=== PATIENT | female | born 1970 | race Caucasian/White ===

== ENCOUNTER 2021-07-27 04:29 | Inpatient (IN) ==
[2021-07-27] MEDS ORDERED: methylPREDNISolone 125 MG/2 ML VIAL IVP ONE (04:40)
[2021-07-27] MEDS ORDERED: Ipratropium/Albuterol Neb 3 ML IH ONE (04:40)
[2021-07-27 05:18] LABS: Basophils # 0.1 K/mcL (0.0-0.2); Basophils % 0.2 %; Eosinophils # 0.1 K/mcL (0.0-0.6); Eosinophils % 0.6 %; Hematocrit 32.4 % (35.3-44.9); Hemoglobin 10.3 g/dL (11.5-15.4); Immature Granulocytes % 0.3 % (0-4); Lymphocytes # 1.6 K/mcL (0.6-4.6); Lymphocytes % 8.1 %; Mean Corpuscular HGB Conc 31.8 g/dL (31.6-35.5); Mean Corpuscular Hemoglobin 27.9 pg (28.0-33.3); Mean Corpuscular Volume 87.8 fL (83.0-100.0); Mean Platelet Volume 11.3 fL (9.4-12.4); Monocytes # 0.7 K/mcL (0.0-1.3); Monocytes % 3.2 %; Neutrophils # 17.8 K/mcL (1.6-8.9); Platelet Count 356 K/mcL (140-400); Red Blood Count 3.69 M/mcL (3.82-4.97); Red Cell Distribution Width 14.4 % (11.5-14.5); Segmented Neutrophils % 87.6 %; White Blood Count 20.4 K/mcL (4.3-11.1)
[2021-07-27] MEDS ORDERED: Isovue-370 500 ML BOTTLE IVP ONE (05:34)
[2021-07-27 05:35] LABS: BUN/Creatinine Ratio 14 (6-26); Blood Urea Nitrogen 10 mg/dL (6-20); Calcium 8.4 mg/dL (8.6-10.3); Carbon Dioxide 25 mEq/L (23-29); Chloride 105 mEq/L (98-107); Glucose 144 mg/dL (70-105); Osmolality,Calculated 294 (280-300); Potassium 2.8 mEq/L (3.5-5.1); Sodium 141 mEq/L (136-145); Troponin I 0.03 ng/mL (< 0.04); eGFR For African Americans > 60 (> 60); eGFR For Non-African Americans > 60 (> 60)
[2021-07-27] MEDS ORDERED: Piperacillin/Tazobactam 3.375 GM in 0.9 % Sodium Chloride Mini Bag 100 ML IVPB ONE (05:35)
[2021-07-27] MEDS ORDERED: Vancomycin 1,500 MG/265 ML IV.SOLN IVPB ONE (05:35)
[2021-07-27] MEDS ORDERED: Azithromycin 500 MG in 0.9 % Sodium Chloride 250 ML IVPB ONE (05:36)
[2021-07-27 06:56] LABS: Adenovirus Not Detected (Not Detect); Coronavirus 229E Not Detected (Not Detect); Coronavirus HKU1 Not Detected (Not Detect); Coronavirus NL63 Not Detected (Not Detect); Coronavirus OC43 Not Detected (Not Detect); Human Metapneumovirus Not Detected (Not Detect); Human Rhinovirus/Enterovirus Not Detected (Not Detect); Influenza A Subtype 2009 H1 Not Detected (Not Detect); Influenza B Not Detected (Not Detect); Parainfluenza Virus 1 Not Detected (Not Detect); Parainfluenza Virus 2 Not Detected (Not Detect); Parainfluenza Virus 3 Not Detected (Not Detect); Parainfluenza Virus 4 Not Detected (Not Detect); SARS-CoV-2 Not Detected (Not Detect)
[2021-07-27 06:57] LABS: Bordetella Pertussis Not Detected (Not Detect); Chlamydophila pneumoniae Not Detected (Not Detect); Mycoplasma pneumoniae Not Detected (Not Detect); Respiratory Syncytial Virus Not Detected (Not Detect)
[2021-07-27 07:05] LABS: VBG HCO3 22 mEq/L (21-27); VBG PCO2 28 mmHg (41-51); VBG PH 7.49 pH Units (7.32-7.42); VBG PO2 36 mmHg (25-50)
[2021-07-27] MEDS ORDERED: Naloxone 0.4 MG/ML INJ IVP PRN (07:13)
[2021-07-27] MEDS ORDERED: Furosemide 20 MG/2 ML VIAL IVP ONE (08:29)
[2021-07-27] MEDS ORDERED: cefTRIAXone 1,000 MG in 0.9 % Sodium Chloride 10 ML IVP SCH (09:00)
[2021-07-27] MEDS ORDERED: *HR* Heparin 5,000 UNIT/ML VIAL IVP PRN ×2 (10:50)
[2021-07-27] MEDS ORDERED: *HR* Heparin 5,000 UNIT/ML VIAL IVP ONE (10:50)
[2021-07-27 11:50] LABS: INR 1.3; Prothrombin Time 14.1 Seconds (9.4-12.1)
[2021-07-27 11:53] LABS: Heparin anti-factor XA UFH < 0.04 IU/mL (0.30-0.70)
[2021-07-27] MEDS ORDERED: Perflutren Lipid Microsphere 1.3 ML in 0.9 % Sodium Chloride 8.7 ML IVP PRN (13:30)
[2021-07-27] MEDS: Heparin 25,000UNIT/250ML 1/2NS 25,000 UNIT/250 ML IV.SOLN IVC SCH ×2 (13:32→19:38)
[2021-07-27] MEDS: Aspirin Enteric Coated 81 MG Tablet PO SCH (14:22)
[2021-07-27] MEDS: Metoprolol XL (24 HR) Succ 25 MG TAB.ER.24H PO SCH (14:22)
[2021-07-27] MEDS: *HR* Ticagrelor 90 MG TABLET PO SCH ×2 (14:22→20:43)
[2021-07-27] MEDS: Piperacillin/Tazobactam 3.375 GM in 0.9 % Sodium Chloride Mini Bag 100 ML IVPB SCH (19:39)
[2021-07-27] MEDS: FLUoxetine 20 MG CAPSULE PO SCH (20:34)
[2021-07-27] MEDS: Vancomycin 1,250 MG/262.5 ML IV.SOLN IVPB SCH (20:43)
[2021-07-27] MEDS: Nicotine 21 MG PATCH.TD24 TD SCH (21:33)
[2021-07-28] MEDS: Piperacillin/Tazobactam 3.375 GM in 0.9 % Sodium Chloride Mini Bag 100 ML IVPB SCH ×4 (01:11→21:22)
[2021-07-28 01:14] LABS: Basophils % 0.1 %; Immature Granulocytes % 0.5 % (0-4); Monocytes % 3.2 %
[2021-07-28 01:15] LABS: Hematocrit 29.3 % (35.3-44.9); Hemoglobin 9.7 g/dL (11.5-15.4); Lymphocytes % 6.2 %; Mean Corpuscular HGB Conc 33.1 g/dL (31.6-35.5); Mean Corpuscular Hemoglobin 28.4 pg (28.0-33.3); Mean Corpuscular Volume 85.7 fL (83.0-100.0); Platelet Count 337 K/mcL (140-400); Red Blood Count 3.42 M/mcL (3.82-4.97); Red Cell Distribution Width 14.3 % (11.5-14.5); White Blood Count 26.5 K/mcL (4.3-11.1)
[2021-07-28 01:17] LABS: Lymphocytes # 1.6 K/mcL (0.6-4.6); Monocytes # 0.9 K/mcL (0.0-1.3); Neutrophils # 23.9 K/mcL (1.6-8.9)
[2021-07-28 01:33] LABS: BUN/Creatinine Ratio 21 (6-26); Blood Urea Nitrogen 11 mg/dL (6-20); Calcium 8.2 mg/dL (8.6-10.3); Carbon Dioxide 23 mEq/L (23-29); Chloride 104 mEq/L (98-107); Glucose 130 mg/dL (70-105); Osmolality,Calculated 289 (280-300); Potassium 3.1 mEq/L (3.5-5.1); Sodium 139 mEq/L (136-145); eGFR For African Americans > 60 (> 60); eGFR For Non-African Americans > 60 (> 60)
[2021-07-28] MEDS ORDERED: *HR* Enoxaparin 40 MG/0.4 ML SYRINGE SQ SCH (06:00)
[2021-07-28] MEDS: FLUoxetine 20 MG CAPSULE PO SCH (07:58)
[2021-07-28] MEDS: *HR* Ticagrelor 90 MG TABLET PO SCH ×2 (07:58→21:22)
[2021-07-28] MEDS: Nicotine 21 MG PATCH.TD24 TD SCH (07:58)
[2021-07-28] MEDS: Aspirin Enteric Coated 81 MG Tablet PO SCH (07:58)
[2021-07-28] MEDS: Vancomycin 1,250 MG/262.5 ML IV.SOLN IVPB SCH (07:58)
[2021-07-28] MEDS: Metoprolol XL (24 HR) Succ 25 MG TAB.ER.24H PO SCH (07:58)
[2021-07-28 08:41] LABS: Magnesium 1.1 mg/dL (1.6-2.6)
[2021-07-28] MEDS ORDERED: Azithromycin 500 MG in 0.9 % Sodium Chloride 250 ML IVPB SCH (09:00)
[2021-07-28] MEDS ORDERED: predniSONE 20 MG TABLET PO SCH (09:00)
[2021-07-28] MEDS ORDERED: Potassium Chloride Elixir 20 MEQ/15 ML UDC PO ONE (09:11)
[2021-07-28] MEDS ORDERED: Magnesium Oxide 400 MG TABLET PO SCH (09:15)
[2021-07-28] MEDS: Ipratropium/Albuterol Neb 3 ML IH SCH ×5 (10:38→23:18)
[2021-07-28] MEDS: Acetaminophen 325 MG TABLET PO PRN (14:25)
[2021-07-28] MEDS: MethylPREDNISolone 40 MG/ML VIAL IVP SCH (17:52)
[2021-07-28] MEDS: Vancomycin 1,750 MG/517.5 ML IV.SOLN IVPB SCH (19:41)
[2021-07-29] MEDS: Ipratropium/Albuterol Neb 3 ML IH SCH ×6 (03:23→23:43)
[2021-07-29] MEDS: hydrOXYzine pamoate 25 MG CAPSULE PO PRN (04:23)
[2021-07-29 04:33] LABS: Basophils % 0.1 %; Hemoglobin 9.6 g/dL (11.5-15.4); Mean Platelet Volume 12.1 fL (9.4-12.4); Monocytes % 2.3 %; Red Cell Distribution Width 14.6 % (11.5-14.5)
[2021-07-29 04:34] LABS: Hematocrit 30.4 % (35.3-44.9); Immature Granulocytes % 0.9 % (0-4); Lymphocytes % 3.3 %; Mean Corpuscular HGB Conc 31.6 g/dL (31.6-35.5); Mean Corpuscular Hemoglobin 27.7 pg (28.0-33.3); Mean Corpuscular Volume 87.9 fL (83.0-100.0); Monocytes # 0.7 K/mcL (0.0-1.3); Neutrophils # 29.5 K/mcL (1.6-8.9); Platelet Count 332 K/mcL (140-400); Red Blood Count 3.46 M/mcL (3.82-4.97); Segmented Neutrophils % 93.4 %
[2021-07-29 04:46] LABS: White Blood Count 31.6 K/mcL (4.3-11.1)
[2021-07-29 04:51] LABS: BUN/Creatinine Ratio 22 (6-26); Blood Urea Nitrogen 12 mg/dL (6-20); Calcium 8.6 mg/dL (8.6-10.3); Carbon Dioxide 21 mEq/L (23-29); Chloride 103 mEq/L (98-107); Glucose 149 mg/dL (70-105); Osmolality,Calculated 285 (280-300); Phosphorous 2.9 mg/dL (2.7-4.5); Potassium 3.7 mEq/L (3.5-5.1); Sodium 136 mEq/L (136-145); eGFR For African Americans > 60 (> 60); eGFR For Non-African Americans > 60 (> 60)
[2021-07-29 05:13] LABS: Platelet Estimate Normal (Normal)
[2021-07-29] MEDS: MethylPREDNISolone 40 MG/ML VIAL IVP SCH ×2 (07:03→17:52)
[2021-07-29] MEDS: Piperacillin/Tazobactam 3.375 GM in 0.9 % Sodium Chloride Mini Bag 100 ML IVPB SCH ×3 (07:04→22:16)
[2021-07-29] MEDS ORDERED: Furosemide 20 MG/2 ML VIAL IVP STA (08:53)
[2021-07-29] MEDS: Vancomycin 1,750 MG/517.5 ML IV.SOLN IVPB SCH ×2 (09:16→18:47)
[2021-07-29] MEDS: Aspirin Enteric Coated 81 MG Tablet PO SCH (09:17)
[2021-07-29] MEDS: Nicotine 21 MG PATCH.TD24 TD SCH (09:17)
[2021-07-29] MEDS: Metoprolol XL (24 HR) Succ 25 MG TAB.ER.24H PO SCH (09:17)
[2021-07-29] MEDS: FLUoxetine 20 MG CAPSULE PO SCH (09:35)
[2021-07-29] MEDS: *HR* Ticagrelor 90 MG TABLET PO SCH ×2 (09:35→20:03)
[2021-07-29] MEDS: Heparin 25,000UNIT/250ML 1/2NS 25,000 UNIT/250 ML IV.SOLN IVC SCH (11:00)
[2021-07-29 11:36] LABS: ABG Base Excess 0 mEq/L (-2 to 3); ABG HCO3 22 mEq/L (21-27); ABG Oxygen Saturation 99 % (95-98); ABG PCO2 30 mmHg (35-45); ABG PH 7.49 pH Units (7.32-7.45); ABG PO2 114 mmHg (85-104); ABG TCO2 23 mEq/L (20-26)
[2021-07-29] MEDS ORDERED: Ipratropium/Albuterol Neb 3 ML IH PRN (16:13)
[2021-07-29] MEDS: Acetaminophen 325 MG TABLET PO PRN (20:02)
[2021-07-30 00:48] LABS: Basophils % 0.1 %; Hemoglobin 8.6 g/dL (11.5-15.4); Monocytes % 2.5 %; Red Cell Distribution Width 14.5 % (11.5-14.5)
[2021-07-30 00:49] LABS: Hematocrit 26.6 % (35.3-44.9); Immature Granulocytes % 0.6 % (0-4); Lymphocytes # 0.7 K/mcL (0.6-4.6); Lymphocytes % 2.4 %; Mean Corpuscular HGB Conc 32.3 g/dL (31.6-35.5); Mean Corpuscular Hemoglobin 27.9 pg (28.0-33.3); Mean Corpuscular Volume 86.4 fL (83.0-100.0); Monocytes # 0.7 K/mcL (0.0-1.3); Neutrophils # 27.9 K/mcL (1.6-8.9); Platelet Count 324 K/mcL (140-400); Red Blood Count 3.08 M/mcL (3.82-4.97); Segmented Neutrophils % 94.4 %; White Blood Count 29.6 K/mcL (4.3-11.1)
[2021-07-30 01:07] LABS: Alanine Aminotransferase 11 Units/L (7-52); Albumin 3.1 g/dL (3.5-5.7); Albumin/Globulin Ratio 0.8 (1.1-2.2); Alkaline Phosphatase 92 Units/L (34-104); Aspartate Amino Transferase 28 Units/L (13-39); BUN/Creatinine Ratio 21 (6-26); Bilirubin,Total 0.5 mg/dL (0.3-1.0); Blood Urea Nitrogen 15 mg/dL (6-20); Calcium 8.8 mg/dL (8.6-10.3); Carbon Dioxide 23 mEq/L (23-29); Chloride 105 mEq/L (98-107); Globulin 3.9 g/dL (2.4-3.5); Glucose 149 mg/dL (70-105); Osmolality,Calculated 288 (280-300); Potassium 3.4 mEq/L (3.5-5.1); Sodium 137 mEq/L (136-145); eGFR For African Americans > 60 (> 60); eGFR For Non-African Americans > 60 (> 60)
[2021-07-30 01:09] LABS: Platelet Estimate Normal (Normal)
[2021-07-30] MEDS: Heparin 25,000UNIT/250ML 1/2NS 25,000 UNIT/250 ML IV.SOLN IVC SCH (01:23)
[2021-07-30] MEDS: Ipratropium/Albuterol Neb 3 ML IH SCH ×5 (03:46→21:01)
[2021-07-30] MEDS: MethylPREDNISolone 40 MG/ML VIAL IVP SCH ×2 (06:00→19:10)
[2021-07-30] MEDS: Piperacillin/Tazobactam 3.375 GM in 0.9 % Sodium Chloride Mini Bag 100 ML IVPB SCH ×3 (07:34→22:38)
[2021-07-30] MEDS: Nicotine 21 MG PATCH.TD24 TD SCH (07:40)
[2021-07-30] MEDS: *HR* Ticagrelor 90 MG TABLET PO SCH ×2 (07:41→19:53)
[2021-07-30] MEDS: Aspirin Enteric Coated 81 MG Tablet PO SCH (07:41)
[2021-07-30] MEDS: Metoprolol XL (24 HR) Succ 25 MG TAB.ER.24H PO SCH (07:41)
[2021-07-30] MEDS: FLUoxetine 20 MG CAPSULE PO SCH (07:41)
[2021-07-30] MEDS ORDERED: Furosemide 20 MG/2 ML VIAL IVP ONE (11:55)
[2021-07-30] MEDS: *HR* Heparin 5,000 UNIT/ML VIAL SQ SCH ×2 (15:57→22:39)
[2021-07-30] MEDS: Acetaminophen 325 MG TABLET PO PRN (19:57)
[2021-07-30] MEDS: hydrOXYzine pamoate 25 MG CAPSULE PO PRN (19:58)
[2021-07-30] MEDS: Vancomycin 1,750 MG/517.5 ML IV.SOLN IVPB SCH (20:11)
[2021-07-31] MEDS: Ipratropium/Albuterol Neb 3 ML IH SCH ×7 (00:01→23:17)
[2021-07-31 01:26] LABS: Red Cell Distribution Width 14.6 % (11.5-14.5)
[2021-07-31 01:28] LABS: Hematocrit 25.2 % (35.3-44.9); Hemoglobin 7.9 g/dL (11.5-15.4); Mean Corpuscular HGB Conc 31.3 g/dL (31.6-35.5); Mean Corpuscular Hemoglobin 26.9 pg (28.0-33.3); Mean Corpuscular Volume 85.7 fL (83.0-100.0); Platelet Count 350 K/mcL (140-400); Red Blood Count 2.94 M/mcL (3.82-4.97)
[2021-07-31 01:36] LABS: White Blood Count 32.1 K/mcL (4.3-11.1)
[2021-07-31 01:48] LABS: Albumin 2.9 g/dL (3.5-5.7); Albumin/Globulin Ratio 0.8 (1.1-2.2); Bilirubin,Total 0.3 mg/dL (0.3-1.0); Calcium 8.6 mg/dL (8.6-10.3); Globulin 3.7 g/dL (2.4-3.5); Potassium 3.4 mEq/L (3.5-5.1); Total Protein 6.6 g/dL (6.4-8.9)
[2021-07-31 04:07] LABS: Estimated Average Glucose 108 mg/dl; Hemoglobin A1C 5.4 %
[2021-07-31] MEDS ORDERED: 0.9 % Sodium Chloride 250 ML IVC ONE (07:37)
[2021-07-31] MEDS: Aspirin Enteric Coated 81 MG Tablet PO SCH (07:41)
[2021-07-31] MEDS: *HR* Ticagrelor 90 MG TABLET PO SCH ×2 (07:42→21:09)
[2021-07-31] MEDS: Metoprolol XL (24 HR) Succ 25 MG TAB.ER.24H PO SCH (07:42)
[2021-07-31] MEDS: FLUoxetine 20 MG CAPSULE PO SCH (07:42)
[2021-07-31] MEDS: MethylPREDNISolone 40 MG/ML VIAL IVP SCH (07:43)
[2021-07-31] MEDS: Nicotine 21 MG PATCH.TD24 TD SCH (07:44)
[2021-07-31] MEDS: *HR* Heparin 5,000 UNIT/ML VIAL SQ SCH ×3 (07:44→21:09)
[2021-07-31] MEDS: Piperacillin/Tazobactam 3.375 GM in 0.9 % Sodium Chloride Mini Bag 100 ML IVPB SCH ×2 (07:46→14:24)
[2021-07-31] MEDS ORDERED: MethylPREDNISolone 40 MG/ML VIAL IVP SCH (09:00)
[2021-07-31] MEDS: hydrOXYzine pamoate 25 MG CAPSULE PO PRN (21:09)
[2021-07-31] MEDS: Acetaminophen 325 MG TABLET PO PRN (21:09)
[2021-08-01] MEDS ORDERED: Piperacillin/Tazobactam 3.375 GM in 0.9 % Sodium Chloride Mini Bag 100 ML IVPB SCH (02:00)
[2021-08-01 02:59] LABS: Basophils % 0.1 %; Immature Granulocytes % 0.7 % (0-4); Lymphocytes % 5.8 %; White Blood Count 28.4 K/mcL (4.3-11.1)
[2021-08-01 03:01] LABS: Hematocrit 26.7 % (35.3-44.9); Hemoglobin 8.5 g/dL (11.5-15.4); Lymphocytes # 1.7 K/mcL (0.6-4.6); Mean Corpuscular HGB Conc 31.8 g/dL (31.6-35.5); Mean Corpuscular Hemoglobin 27.2 pg (28.0-33.3); Mean Corpuscular Volume 85.6 fL (83.0-100.0); Mean Platelet Volume 11.6 fL (9.4-12.4); Monocytes # 1.5 K/mcL (0.0-1.3); Monocytes % 5.4 %; Platelet Count 385 K/mcL (140-400); Red Blood Count 3.12 M/mcL (3.82-4.97); Red Cell Distribution Width 14.4 % (11.5-14.5)
[2021-08-01 03:03] LABS: Platelet Estimate Normal (Normal)
[2021-08-01 03:11] LABS: Sodium, Urine 32.7 mEq/L
[2021-08-01 03:16] LABS: Albumin 2.9 g/dL (3.5-5.7); Albumin/Globulin Ratio 0.8 (1.1-2.2); Bilirubin,Total 0.3 mg/dL (0.3-1.0); Calcium 8.7 mg/dL (8.6-10.3); Globulin 3.5 g/dL (2.4-3.5); Potassium 3.4 mEq/L (3.5-5.1); Total Protein 6.4 g/dL (6.4-8.9)
[2021-08-01] MEDS: Ipratropium/Albuterol Neb 3 ML IH SCH ×6 (04:02→23:23)
[2021-08-01] MEDS: Acetaminophen 325 MG TABLET PO PRN ×3 (04:59→22:16)
[2021-08-01] MEDS: *HR* Heparin 5,000 UNIT/ML VIAL SQ SCH ×3 (05:00→22:16)
[2021-08-01] MEDS: predniSONE 20 MG TABLET PO SCH (07:58)
[2021-08-01] MEDS: Nicotine 21 MG PATCH.TD24 TD SCH (07:58)
[2021-08-01] MEDS: FLUoxetine 20 MG CAPSULE PO SCH (07:59)
[2021-08-01] MEDS: Aspirin Enteric Coated 81 MG Tablet PO SCH (07:59)
[2021-08-01] MEDS: *HR* Ticagrelor 90 MG TABLET PO SCH ×2 (07:59→20:27)
[2021-08-01] MEDS: Metoprolol XL (24 HR) Succ 25 MG TAB.ER.24H PO SCH (07:59)
[2021-08-01] MEDS: cefTRIAXone 1,000 MG in 0.9 % Sodium Chloride 10 ML IVP SCH (11:48)
[2021-08-01] MEDS ORDERED: Metoprolol XL (24 HR) Succ 25 MG TAB.ER.24H PO ONE (12:10)
[2021-08-01 13:38] LABS: Uric Acid 6.7 mg/dL (2.3-7.6)
[2021-08-01 16:29] LABS: Bacteria,Urine Few per hpf (None-Few); Bilirubin,Urine Negative (Negative); Blood,Urine Trace (Negative); Clarity,Urine Clear (Clear); Color,Urine Colorless (Yellow); Glucose,Urine (UA) Normal (Normal); Ketones,Urine Negative (Negative); Leukocyte Esterase,Urine Negative (Negative); Mucus,Urine Few per lpf (None-Few); Nitrite,Urine Negative (Negative); Protein,Urine 30 mg/dL (Neg-Trace); RBC,Urine 0-3 per hpf (0-3); Specific Gravity,Urine 1.009 (1.010-1.025); Squamous Epithelial Cell,Urine Few per hpf (None-Few); Urobilinogen,Urine Normal (Normal); WBC,Urine 0-3 per hpf (0-3)
[2021-08-01] MEDS: hydrOXYzine pamoate 25 MG CAPSULE PO PRN (22:16)
[2021-08-02] MEDS: Ipratropium/Albuterol Neb 3 ML IH SCH ×6 (03:55→23:50)
[2021-08-02] MEDS: Acetaminophen 325 MG TABLET PO PRN ×2 (05:03→15:16)
[2021-08-02] MEDS: *HR* Heparin 5,000 UNIT/ML VIAL SQ SCH ×3 (05:03→21:44)
[2021-08-02 06:39] LABS: Basophils % 0.1 %; Eosinophils % 0.2 %; Hematocrit 29.4 % (35.3-44.9); Hemoglobin 9.2 g/dL (11.5-15.4); Lymphocytes # 2.2 K/mcL (0.6-4.6); Lymphocytes % 9.1 %; Mean Corpuscular HGB Conc 31.3 g/dL (31.6-35.5); Mean Corpuscular Hemoglobin 26.9 pg (28.0-33.3); Mean Platelet Volume 11.7 fL (9.4-12.4); Monocytes # 0.7 K/mcL (0.0-1.3); Platelet Count 424 K/mcL (140-400); Red Blood Count 3.42 M/mcL (3.82-4.97); Red Cell Distribution Width 14.6 % (11.5-14.5); Segmented Neutrophils % 86.6 %; White Blood Count 24.2 K/mcL (4.3-11.1)
[2021-08-02 07:16] LABS: Albumin 3.4 g/dL (3.5-5.7); Albumin/Globulin Ratio 0.9 (1.1-2.2); Bilirubin,Total 0.2 mg/dL (0.3-1.0); Calcium 8.9 mg/dL (8.6-10.3); Globulin 3.6 g/dL (2.4-3.5); Magnesium 1.6 mg/dL (1.6-2.6); Potassium 3.7 mEq/L (3.5-5.1)
[2021-08-02] MEDS: Nicotine 21 MG PATCH.TD24 TD SCH (09:05)
[2021-08-02] MEDS: Aspirin Enteric Coated 81 MG Tablet PO SCH (09:07)
[2021-08-02] MEDS: FLUoxetine 20 MG CAPSULE PO SCH (09:08)
[2021-08-02] MEDS: predniSONE 20 MG TABLET PO SCH (09:08)
[2021-08-02] MEDS: *HR* Ticagrelor 90 MG TABLET PO SCH ×2 (09:08→21:42)
[2021-08-02] MEDS: cefTRIAXone 1,000 MG in 0.9 % Sodium Chloride 10 ML IVP SCH (09:09)
[2021-08-02] MEDS: Metoprolol XL (24 HR) Succ 25 MG TAB.ER.24H PO SCH (09:10)
[2021-08-02] MEDS: hydrOXYzine pamoate 25 MG CAPSULE PO PRN (21:50)
[2021-08-03] MEDS: Ipratropium/Albuterol Neb 3 ML IH SCH ×6 (04:02→23:20)
[2021-08-03] MEDS: *HR* Heparin 5,000 UNIT/ML VIAL SQ SCH ×3 (05:09→20:46)
[2021-08-03 09:07] LABS: Basophils % 0.1 %; Eosinophils # 0.1 K/mcL (0.0-0.6); Eosinophils % 0.3 %; Hematocrit 26.4 % (35.3-44.9); Hemoglobin 8.4 g/dL (11.5-15.4); Immature Granulocytes % 1.2 % (0-4); Lymphocytes # 2.7 K/mcL (0.6-4.6); Lymphocytes % 11.8 %; Mean Corpuscular HGB Conc 31.8 g/dL (31.6-35.5); Mean Corpuscular Hemoglobin 26.7 pg (28.0-33.3); Mean Corpuscular Volume 83.8 fL (83.0-100.0); Mean Platelet Volume 11.4 fL (9.4-12.4); Monocytes # 0.7 K/mcL (0.0-1.3); Monocytes % 3.1 %; Neutrophils # 19.2 K/mcL (1.6-8.9); Platelet Count 443 K/mcL (140-400); Red Blood Count 3.15 M/mcL (3.82-4.97); Red Cell Distribution Width 14.6 % (11.5-14.5); Segmented Neutrophils % 83.5 %
[2021-08-03 09:26] LABS: Calcium 8.7 mg/dL (8.6-10.3); Potassium 3.5 mEq/L (3.5-5.1)
[2021-08-03] MEDS: Metoprolol XL (24 HR) Succ 25 MG TAB.ER.24H PO SCH (10:44)
[2021-08-03] MEDS: *HR* Ticagrelor 90 MG TABLET PO SCH ×2 (10:44→20:46)
[2021-08-03] MEDS: cefTRIAXone 1,000 MG in 0.9 % Sodium Chloride 10 ML IVP SCH (10:44)
[2021-08-03] MEDS: Aspirin Enteric Coated 81 MG Tablet PO SCH (10:44)
[2021-08-03] MEDS: Nicotine 21 MG PATCH.TD24 TD SCH (10:46)
[2021-08-03] MEDS: FLUoxetine 20 MG CAPSULE PO SCH (10:46)
[2021-08-03] MEDS: predniSONE 20 MG TABLET PO SCH (10:46)
[2021-08-03] MEDS: Acetaminophen 325 MG TABLET PO PRN (20:49)
[2021-08-04 02:27] LABS: Basophils % 0.1 %; Eosinophils % 0.1 %; Hematocrit 24.6 % (35.3-44.9); Hemoglobin 7.8 g/dL (11.5-15.4); Immature Granulocytes % 1.4 % (0-4); Lymphocytes # 1.8 K/mcL (0.6-4.6); Lymphocytes % 11.2 %; Mean Corpuscular HGB Conc 31.7 g/dL (31.6-35.5); Mean Corpuscular Hemoglobin 26.9 pg (28.0-33.3); Mean Corpuscular Volume 84.8 fL (83.0-100.0); Mean Platelet Volume 11.4 fL (9.4-12.4); Monocytes # 0.4 K/mcL (0.0-1.3); Monocytes % 2.4 %; Neutrophils # 13.5 K/mcL (1.6-8.9); Nucleated Red Blood Cells 0.1 /100 WBC (0); Platelet Count 451 K/mcL (140-400); Red Cell Distribution Width 14.6 % (11.5-14.5); Segmented Neutrophils % 84.8 %; White Blood Count 15.9 K/mcL (4.3-11.1)
[2021-08-04 02:47] LABS: Calcium 8.7 mg/dL (8.6-10.3); Potassium 4.1 mEq/L (3.5-5.1)
[2021-08-04] MEDS: Ipratropium/Albuterol Neb 3 ML IH SCH ×4 (03:56→15:14)
[2021-08-04] MEDS: *HR* Heparin 5,000 UNIT/ML VIAL SQ SCH (05:18)
[2021-08-04] MEDS: *HR* Ticagrelor 90 MG TABLET PO SCH (07:41)
[2021-08-04] MEDS: Aspirin Enteric Coated 81 MG Tablet PO SCH (07:41)
[2021-08-04] MEDS: Nicotine 21 MG PATCH.TD24 TD SCH (07:42)
[2021-08-04] MEDS: predniSONE 20 MG TABLET PO SCH (07:43)
[2021-08-04] MEDS: cefTRIAXone 1,000 MG in 0.9 % Sodium Chloride 10 ML IVP SCH (07:44)
[2021-08-04] MEDS: FLUoxetine 20 MG CAPSULE PO SCH (07:44)
[2021-08-04] MEDS: Metoprolol XL (24 HR) Succ 25 MG TAB.ER.24H PO SCH (07:49)
[2021-08-04 10:19] VITALS: TEMP 98.2
[2021-08-04 15:31] VITALS: BP 126/81; PULSE 93; O2SAT 95
== END 2021-08-04 17:00 | disposition home or self-care (01) | DRG 871 ==
LOC: EMEROOARM 04:29 → 3NENU 04:29 → SUATTDRO 07:01 → 2NNU 07:06 → 3NENU 07:24
PROVIDERS: ADMIT Internal Medicine; ATTEND Internal Medicine